=== PATIENT | female | born 1985 | race Two or more races ===

== ENCOUNTER 2024-09-17 15:11 | Emergency (ER) | payer OTHER ==
[~2024-09-17] VITALS: Ht 160 cm; Wt 58.5 kg
[2024-09-17] MEDS ORDERED: BUDEO.25 IH (15:17)
[2024-09-17] MEDS ORDERED: PROAIR RESPICL90 MCG (15:17)
[2024-09-17] MEDS ORDERED: SINGULAIR10 MG PO ×2 (15:18→19:57)
[2024-09-17] MEDS ORDERED: ALLEGRA ALLERGY60 MG (15:18)
[2024-09-17] MEDS ORDERED: GUAIFENESIN/DEXTROMETHORPHAN 100MG/10ML BLIST.PACK PO ONE ×2 (16:41→16:45)
[2024-09-17] MEDS ORDERED: IPRATROPIUM/ALBUTEROL SULFATE 3 ML AMPUL.NEB IH SCH (16:45)
[2024-09-17 17:02] LABS: HEMATOCRIT 36.4 % (36.0-45.00); HEMOGLOBIN 12.5 g/dL (12.0-15.00); MEAN CELL VOLUME 88.6 fL (80.00-100.00); MEAN CORPUSCULAR HEMOGLOBIN 30.5 pg (27.00-32.0); MEAN CORPUSCULAR HGB CONC 34.4 g/dl (32.0-36.0); PLATELET COUNT 242 K/uL (150-450); RED BLOOD COUNT 4.11 M/uL (4.00-6.00); RED CELL DISTRIBUTION WIDTH 13.2 % (11.5-14.5)
[2024-09-17] MEDS ORDERED: IPRATROPIUM/ALBUTEROL SULFATE 3 ML AMPUL.NEB IH ONE (17:02)
[2024-09-17] MEDS ORDERED: ZITHROMAX TRI-500 MG PO (19:57)
[2024-09-17] MEDS ORDERED: GILTUSS COUGH-118 M1 PO (19:57)
== END 2024-09-17 21:12 | disposition home or self-care (01) ==
LOC: ER 15:12
PROVIDERS: Preventive Medicine Public Health & General Preventive Medicine
DX: J06.9 Acute upper respiratory infection, unspecified (principal); R05.9 Cough, unspecified; Z20.822 Contact with and (suspected) exposure to COVID-19